=== PATIENT | female | born 1975 | race Caucasian/White ===

== ENCOUNTER 2016-09-10 10:59 | Inpatient (IN) | payer OTHER ==
--- NOTE | 2016-08-28 21:08 | HP ---
ADMISSION HISTORY AND PHYSICAL: DATE OF ADMISSION: 09/10/16 ATTENDING SURGEON: Dr. Jonathon Kirkland. CHIEF COMPLAINT: Ventral incisional hernia. PLAN: Open repair ventral incisional hernia with possible component separation and mesh. HISTORY OF PRESENT ILLNESS: This is a 40-year-old female who is almost 5 years status post gastric bypass with Dr. Kirkland. She underwent laparotomy in 2014, for an internal hernia with cecal volvulus, ultimately requiring right colectomy. She subsequently developed a upper midline incisional hernia that has been increasingly symptomatic. It has also increased in size and is associated with increased symptoms in relation to eating. She has taken to eating much smaller amounts more frequently. Her weight has remained stable. She does not note any change in her bowel movements, though does maintain a regular stool softener. At one point, some back pain was felt to be possibly related though at the present time, the back pain seems to have resolved. She had seen Dr. Kirkland for workup and recommendations made for repair of the hernia. She was initially scheduled in early June, but for various reasons , the surgery has been pushed back. One of those reasons was Dr. Kirkland' preference to use a device that will administer local anesthesia on a steady basis postoperatively and that will apparently be available for her surgery date. She otherwise understands the indications for surgery. The risks, benefits, alternatives, and expected perioperative course including one or more night of hospital stay. She would like to proceed as scheduled with open repair ventral hernia with possible component separation and mesh. PAST MEDICAL HISTORY: Morbid obesity (has lost and maintained approximately 100 pounds since her bypass surgery). She has a past history of type 2 diabetes , which is currently diet controlled. She is treated for depression, restless legs syndrome, mild iron deficiency anemia, and hypothyroidism. She is also followed for ovarian cysts, as well as dysfunctional uterine bleeding ( considering hysterectomy). She also has a past history of migraine headaches, though these are not currently active and GERD. PAST SURGICAL HISTORY: Previous surgeries include gastric bypass with incidental appendectomy in 2011, laparotomy with repair of ventral hernia and right colectomy for cecal volvulus, February 2015. EG tube was placed at that time and subsequently removed. She underwent laparoscopic cholecystectomy, 2010; bilateral carpal tunnel release; tubal ligation; sinus surgery; treatment of precancerous cervical lesions (normal subsequent Pap smears). No anesthesia or surgical complications noted. MEDICATIONS: Current medications: 1. Gabapentin 200 mg t.i.d. (to be titrated up to 300 mg t.i.d. by the time of her surgery). 2. Requip 0.5 mg q.h.s. 3. Synthroid 50 mcg q. day. 4. Zoloft 100 mg q. day. 5. Singulair 10 mg q. day. 6. Omeprazole 40 mg q. day. 7. 325 mg q. day. 8. Vitamin D, dose not specified, once daily. 9. She takes a calcium and magnesium supplement as well as multivitamin and vitamin B12 supplement. 10. She takes a stool softener daily. She is no longer requiring any [place]. ALLERGIES: None known. FAMILY HISTORY: Positive for heart disease, but negative for anesthesia problems, bleeding, or clotting disorders. SOCIAL HISTORY: The patient is . 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 She denies use of tobacco, alcohol, or other substances. REVIEW OF SYSTEMS: General: No recent constitutional symptoms or acute illnesses. Weight has remained stable. Cardiovascular: No history of hypertension, chest pain, or palpitations. Respiratory: She has a remote history of reactive airway and has used a bronchodilator in the past, but infrequently. No recent problems. GI: No problems reported. No lower GI symptoms. : No problems reported. CABLE LACER: As noted above. Most recent pelvic exam and Pap smear done within the past year and a half, as well as breast exam , she has not yet had a baseline screening mammogram. Endocrine: History of type 2 diabetes, currently diet controlled. She is on thyroid supplement for hypothyroidism. Hematological/Oncological: She has had blood transfusions in the past for her most recent surgery, but otherwise no bleeding or clotting disorders noted. PHYSICAL EXAMINATION GENERAL: Well-nourished, well-developed female, in no acute distress VITAL SIGNS: Height 68 inches, weight 155 pounds, BMI 23.6. Temperature 98.2, blood pressure 110/70, pulse 72, respirations 16. HEENT: Pupils equal, round, and reactive. EOMs intact. No conjunctival pallor. Oropharynx, teeth in good repair. No intraoral lesions. NECK: No lymphadenopathy, thyromegaly, or masses. LUNGS: Clear to auscultation. No rales or wheezes. HEART: Regular rate and rhythm. No murmur noted. BREASTS: Not examined. ABDOMEN: Large and wide mid upper abdominal incision, which continues below the umbilicus and which clearly shows herniation in the upper portion of the incision when she sits up. This is soft and nontender at the present time and self-reduces when she is supine. The remainder of the abdominal exam is without palpable masses or organomegaly. No tenderness. RECTAL AND PELVIC EXAMS: Not done. BACK: No spinous process or CVA tenderness. EXTREMITIES: No edema. NEUROLOGICAL: Grossly intact. SKIN: Warm and dry. No suspicious rashes or lesions. IMPRESSION: Ventral incisional hernia. PLAN: Open repair ventral incisional hernia with possible component separation and mesh. EMILIA CHAPA CC: Dr. [place] * [id number]/CPS #: [id number] [facility] HOSPITALFrancia
[~2016-09-10 10:59] MED LIST: Buffered Lidocaine 1% SYR 3ML* 3 ML/SYR SYRINGE INTRADERM ONE; Famotidine IV* 10 MG/ML 2 ML (20 mg) IV ONE
[2016-09-10] MEDS ORDERED: Buffered Lidocaine 1% SYR 3ML* 3 ML/SYR SYRINGE ONE (11:11)
[2016-09-10] MEDS ORDERED: Famotidine IV* 10 MG/ML 2 ML (20 mg) ONE (11:11)
[2016-09-10] MEDS ORDERED: ceFAZolin 2 GM PREMIX (*) 2 GM/50 ML BAG IVPB ONE (11:11)
[2016-09-10] MEDS ORDERED: Lidocaine 2% MPF* 2 ML VIAL ONE (12:06)
[2016-09-10] MEDS ORDERED: DiMENhydriNATE IV* 50 MG/ML VIAL ONE (12:06)
[2016-09-10] MEDS ORDERED: Succinylcholine* 20 MG/ML 10 ML VIAL ONE (12:06)
[2016-09-10] MEDS ORDERED: Dexamethasone IV* 4 MG/ML 1 ML (4 MG) ONE (12:06)
[2016-09-10] MEDS ORDERED: fentaNYL* 50 MCG/ML 2 ML VIAL (100 MCG VIAL) ONE ×3 (12:06→17:54)
[2016-09-10] MEDS ORDERED: Ondansetron INJ* 2 MG/ML VIAL ONE (12:06)
[2016-09-10] MEDS ORDERED: Midazolam* 1 MG/ML 5 ML VIAL (5 MG) ONE (12:06)
[2016-09-10] MEDS ORDERED: Ketorolac INJ* 30 MG/ML 1 ML VIAL ONE (12:06)
[2016-09-10] MEDS ORDERED: Propofol* 10 MG/ML 20 ML BTL IV PUSH ONE ×2 (12:06→17:25)
[2016-09-10] MEDS ORDERED: Rocuronium* 10 MG/ML VIAL ONE ×2 (13:14→15:11)
[2016-09-10] MEDS ORDERED: Bupivacaine 0.5% W/EPI SDV* 30 ML VIAL ONE (13:35)
[2016-09-10] MEDS ORDERED: Lidocaine 1% INJ* 10 MG/ML 30 ML SDV ONE (13:36)
[2016-09-10] MEDS ORDERED: [UNRECOGNIZED DRUG - OTHER] PERIPH SCH (14:00)
[2016-09-10] MEDS ORDERED: ROPIVACAINE 0.2% PERIPH SCH (14:00)
[2016-09-10] MEDS ORDERED: Phenylephrine IV* 40 MCG/ML 10 ML SYRINGE ONE (14:28)
[2016-09-10] MEDS ORDERED: Acetaminophen IV 1GM/100ML * 100 ML IVPB ONE (14:41)
[2016-09-10] MEDS ORDERED: oxyCODONE TAB* 5 MG TAB PO PRN (14:41)
[2016-09-10] MEDS ORDERED: DiMENhydriNATE IV* 50 MG/ML VIAL IV PUSH PRN (14:41)
[2016-09-10] MEDS ORDERED: Ropivacaine* 2 MG/ML 20 ML VIAL (0.2%) ONE (16:19)
[2016-09-10] MEDS ORDERED: HYDROmorphone INJ* 1 MG/ML CARPUJECT SYRINGE ONE ×2 (16:20→18:19)
--- NOTE | 2016-09-10 18:11 | PN ---
Progress Note - Progress Note Note: Brief Operative Note: Preop Dx: Ventral Incisional Hernia Postop Dx: same Procedure: Open repair ventral hernia w/ component separation w/ mesh; placement of transversus abdominus infusion catheters Anesthesia: LINDA (Meghan) Surgeon: Marita Asst: Jeri EBL: 100 ml Fluids: 2400 ml RL UOP 300 ml Drains: 2 JPs; 2 On-Q infusion catheters Findings: dictated
[2016-09-10] MEDS ORDERED: HYDROmorphone INJ* 1 MG/ML CARPUJECT SYRINGE IV SLOW PU PRN (18:16)
[2016-09-10] MEDS ORDERED: Acetaminophen IV 1GM/100ML * 100 ML ONE (18:19)
[2016-09-10] MEDS: HYDROmorphone INJ* 1 MG/ML CARPUJECT SYRINGE IV PRN ×4 (18:20→19:42)
[2016-09-10] MEDS ORDERED: Acetaminophen TAB* 325 MG PO PRN (18:20)
[2016-09-10] MEDS ORDERED: Ondansetron INJ* 2 MG/ML VIAL IV PRN (18:21)
[2016-09-10] MEDS ORDERED: oxyCODONE/Acetamin 5/325 MG* TAB ONE (19:54)
[2016-09-10] MEDS ORDERED: oxyCODONE TAB* 5 MG TAB ONE (20:00)
[2016-09-10] MEDS: HYDROmorphone INJ* 2 MG/ML CARPUJECT SYRINGE IV SLOW PU PRN (21:19)
[2016-09-10] MEDS: Gabapentin CAP(*) 300 MG PO SCH (21:20)
[2016-09-10] MEDS: Ropinirole TAB* 0.5 MG TAB PO SCH (21:21)
[2016-09-11] MEDS: oxyCODONE/Acetamin 5/325 MG* TAB PO PRN ×3 (00:22→20:45)
--- NOTE | 2016-09-11 02:00 | OP ---
DATE OF OPERATION: 09/10/16 - ROOM #335 DATE OF : 75 SURGEON: Jonathon Kirkland MD CRUTCHING CONTRACTOR: Dr. Wilcox. ANESTHESIOLOGIST: Dr. Christianson. ANESTHESIA: General endotracheal. PRE-OP DIAGNOSIS: Ventral incisional hernias. POST-OP DIAGNOSIS: Ventral incisional hernias. OPERATIVE PROCEDURE: 1. Open repair of ventral incisional hernia with component separation and mesh. 2. Placement of transversus abdominis infusion catheters.. ESTIMATED BLOOD LOSS: 50 mL. IV FLUIDS: Crystalloid. SPECIMEN: None. DRAINS: Two 7-mm Leo Jerez drains and subcutaneous tissues. COMPLICATIONS: None. COUNTS: Instrument, needle and sponge counts were correct. DESCRIPTION OF PROCEDURE: The patient was brought to the operating room and placed on the table supine. Sequential compression devices were placed in both lower extremities. General anesthesia was administered. A De [place] Santos catheter was placed. She was positioned and padded appropriately. Her abdomen was prepped and draped in the usual sterile fashion. She received appropriate intravenous antibiotics. Time- out was performed. Midline laparotomy incision was created through the prior scar. The patient had a large epigastric hernia with a small 1 cm bridge of tissue just above the umbilical region and then below that, she had another ventral incisional hernia. The peritoneal cavity was entered. There were a few adhesions. There was some adhesion of small bowel and stomach to the left side of the abdominal wall and in fact, the stomach was densely adherent at the point that the patient had a prior gastrostomy tube. This was taken down using the combination of sharp and blunt dissection and cautery was used to divide the fascia to completely free the gastric wall. The gastric wall was then oversewn with a 2-0 silk in a [id number] fashion, though there was no obvious injury to this. The defect from the gastrostomy tube was closed intra-abdominally with an interrupted [id number] 0 Ti-Cron suture. The adhesiolysis then was completed on the left side and the adhesiolysis was also performed superiorly above the liver and freeing the falciform ligament. The right side of the abdomen was free of adhesions. The largest of the defect was the epigastric defect, which was about 8 cm across and it was approximately 8 to 10 cm in craniocaudal dimension. The entire length of the fascial defect was about 20 inches; however, this extended from the xiphoid. It was decided that we would proceed with components of the operation consisting of a lateral release and then also use an intra-abdominal placement of the Ventrio mesh. The subcutaneous flaps were raised on either side of the wound using cautery and staying directly on top of the fascia. The dissection proceeded out laterally beyond the border of the rectus muscles as confirmed by palpation and inspection on each side. The lateral release was performed about 1 cm lateral to the rectus sheath, the external oblique aponeurosis with the cautery and extending this from the costal margin down to about the level of the anterior superior iliac spine on each side. This provided adequate mobilization of the tissues. Next, the Ventrio mesh size approximately 8 x 10 inches was sutured in place with transfascial stitches of 0 Ti-Cron, placing these sutures around the exterior ring of the mesh. Initially the lateral mid points of the mesh were secured, these were placed about 8 cm out from the edge of the fascia on each side and then additional sutures were placed at 10 o'clock, 2 o'clock, 4 o'clock, 8 o'clock and at 6 o'clock, all with interrupted 0 Ti-Cron sutures. Then before tying these sutures down, the ON-Q catheter was placed in the transversus abdominis plane. This was done first by making skin incisions approximately 6 cm lateral to the midline just above the costal margins on right and left sides. The catheter sheath was positioned over the stylette and advanced through the subcutaneous tissues into the abdominal musculature and it was positioned in the transversus abdominis plane from running cephalocaudally well lateral to the area of the suture placement and the mesh. The stylette was then removed and the catheter was threaded through the peel-away sheath and the peel-away sheath was then removed and the catheters were ensured to be in proper position both on the left side and on the right side. Next, the mesh was positioned and the sutures were tied down and then a series of spiral tacks were placed using CapSure tacking device from within the pocket of the Ventrio mesh tacking the mesh at 1 cm interval circumferentially, though tacks were not placed at the most superior aspect due to the fact that this was beneath the costal margin and well above the liver. An additional interval of tacks was then placed with the CapSure and then the midline wound was closed with #1 Surgipro running with the mesh being drawn up with the suture in the midline. After closing the abdomen, the subcutaneous tissues were irrigated and hemostasis was assured. The 7-mm drains were placed through separate stab wound incisions in both right and left lower abdomen and positioned in the subcutaneous space and sutured to the skin with 3-0 Surgipro. The midline was then closed with 3-0 Polysorb interrupted sutures to approximate the subcutaneous tissues and tacking this down to the midline fascia. The umbilical stalk which had also been mobilized was also tacked down to the midline fascia and the skin was closed with christofer. The YASMANY drains were placed to suction bulbs. The ON-Q catheters were primed with 5 cc of 0.2% ropivacaine in each catheter and then connected to the dual pump. The catheters were dressed with DermaFlex and Steri-Strips and Tegaderm. The midline wound was dressed with an island dressing. The YASMANY drains were dressed with 4x4s and tape. Abdominal binder was also applied. The patient tolerated the procedure well. She was extubated uneventfully. She was transferred to the recovery room in stable condition. CC: Priyanka Kowalski MD* [id number]/[facility] #: [id number] ARIANA
[2016-09-11] MEDS: HYDROmorphone INJ* 2 MG/ML CARPUJECT SYRINGE IV SLOW PU PRN ×6 (03:59→23:43)
[2016-09-11] MEDS: Levothyroxine TAB* 50 MCG TAB PO SCH (05:43)
[2016-09-11] MEDS: Gabapentin CAP(*) 300 MG PO SCH ×3 (08:45→20:11)
[2016-09-11] MEDS: Prenatal Vitamin TAB PO SCH (08:45)
[2016-09-11] MEDS: Sertraline* 50 MG TAB PO SCH (08:46)
[2016-09-11] MEDS: Omeprazole CAP* 20 MG PO SCH (08:46)
--- NOTE | 2016-09-11 10:22 | PN ---
Progress Note - Progress Note SOAP: Subjective:awake,alert,needed IV pain med because pain balls not working;ate reg diet,no nausea;voiding after escobar out;up walking;using IS [] Objective:lungs:clear bilat;heart RRR;abd:+bs,midline dsg intact,not removed, old bloody drainage;YASMANY x2 intact,bloody drainage,milked and patent;soft, nondistended;ext:nontender,no edema [] Assessment:POD#1 s/p ventral hernia repair with component separation,doing well [] Plan:pain balls flushed by PACU nurse;possible discharge home later if good pain control []
[2016-09-11] MEDS ORDERED: ceFAZolin 2 GM PREMIX (*) 2 GM/50 ML BAG IVPB ONE ×2 (11:09→16:00)
[2016-09-11] MEDS: Ondansetron INJ* 2 MG/ML VIAL IV PRN ×3 (11:32→20:12)
[2016-09-11 13:55] LABS: Hematocrit 33 % (35-47); Hemoglobin 10.9 g/dl (12.0-16.0)
[2016-09-11] MEDS ORDERED: HYDROmorphone INJ* 2 MG/ML CARPUJECT SYRINGE IV ONE (14:00)
[2016-09-11] MEDS ORDERED: fentaNYL* 50 MCG/ML 5 ML VIAL (250 MCG VIAL) ONE (17:21)
[2016-09-11] MEDS ORDERED: Midazolam* 1 MG/ML 5 ML VIAL (5 MG) ONE (17:21)
[2016-09-11] MEDS ORDERED: Montelukast Sodium TAB* 10 MG PO SCH (18:00)
[2016-09-11] MEDS ORDERED: Ondansetron INJ* 2 MG/ML VIAL IV PRN (18:03)
[2016-09-11] MEDS ORDERED: HYDROmorphone INJ* 1 MG/ML CARPUJECT SYRINGE IV PRN (18:03)
[2016-09-11] MEDS ORDERED: DiMENhydriNATE IV* 50 MG/ML VIAL IV PUSH PRN (18:03)
[2016-09-11] MEDS ORDERED: fentaNYL* 50 MCG/ML 2 ML VIAL (100 MCG VIAL) IV PRN (18:03)
--- NOTE | 2016-09-11 19:04 | SURGPN ---
Brief Operative Note - Surgery Procedures: PREOP DX/POSTOPDX: ABDOMINAL WALL HEMATOMA PROC: EXPLORATION OF ABDOMINAL WOUND, EVACUATION OF ABDOMINAL WALL HEMATOMA AND REPLACEMENT OF YASMANY DRAINS SURG: MECENAS ASSIST: Suzanne LYNNE NP ANES: LINDA; VERONIQUE EBL: 300 ML (HEMATOMA) IVF: LR SPEC: NONE DRAIN: YASMANY 7MM X 2 COMPL: NONE COND: STABLE TO RR. FINDINGS: HEMATOMA IN SUBCUTANEOUS SPACE RIGHT ABDOMEN.
[2016-09-11] MEDS: Ropinirole TAB* 0.5 MG TAB PO SCH (20:12)
[2016-09-11] MEDS: ceFAZolin 1 GM in Dextrose (*) 1 GM/50 ML BAG IVPB SCH (20:30)
[2016-09-12] MEDS: oxyCODONE/Acetamin 5/325 MG* TAB PO PRN ×3 (00:56→09:29)
--- NOTE | 2016-09-12 01:39 | OP ---
DATE OF OPERATION: 09/11/16 - ROOM #335 DATE OF : 75 SURGEON: Jonathon Kirkland MD. SCREEN PRINTER: Jo Gómez NP. ANESTHESIOLOGIST: Randy Brown MD. ANESTHESIA: General endotracheal. PRE-OP DIAGNOSIS: Abdominal wall hematoma. POST-OP DIAGNOSIS: Abdominal wall hematoma. OPERATIVE PROCEDURE: Wound exploration, evacuation of abdominal wall hematoma, replacement of Leo-Jerez drains. ESTIMATED BLOOD LOSS: 300 mL (hematoma). IV FLUIDS: Crystalloids. SPECIMEN: None. DRAINS: The 7 mm Leo-Jerez x2. COMPLICATIONS: None. COUNTS: Instrument, needle, and sponge counts correct. DESCRIPTION OF PROCEDURE: The patient was brought to the operating room, placed on the table supine. The patient had sequential compression devices placed on both lower extremities. She was administered general anesthesia. Abdomen was prepped and draped in the usual sterile fashion, prepping the drains and ON-Q catheters into the site with Betadine. After draping, time-out was performed. The patient had received dose of IV antibiotics prior to this. The indwelling midline christofer were removed and subcutaneous sutures were cut. Dark clotted blood was noted in the left subcutaneous space of the abdomen. The drain was removed and the clot was evacuated. Irrigation was performed and then careful inspection for any active bleeding. Aside from some small subcutaneous bleeders, there was no evidence of any active bleeding. The left side of the abdomen was explored as well but this was clear of any clot. Both YASMANY drains were removed and replaced with new Leo-Jerez drains that were sutured to the skin going through the same tracks and 3-0 Surgipro were used to suture the drains to the skin. The midline wound was then closed with interrupted 3-0 Polysorb to approximate subcutaneous and suture deep dermis and the christofer were used to approximate the skin. The dressing was applied to the midline wound and at the drain sites. The ON-Q catheters were inspected and noted to be intact and in proper position. The Tegaderm dressings and Steri- Strips that were covering these were removed and replaced. The patient tolerated the procedure well, she was extubated and transferred to the recovery room in stable condition. CC: Priyanka Kowalski MD * [id number]/[facility] #: [id number] [facility] CENTERFrancia
[2016-09-12] MEDS: ceFAZolin 1 GM in Dextrose (*) 1 GM/50 ML BAG IVPB SCH ×2 (01:54→08:06)
[2016-09-12] MEDS: Ondansetron INJ* 2 MG/ML VIAL IV PRN (03:46)
[2016-09-12] MEDS: HYDROmorphone INJ* 2 MG/ML CARPUJECT SYRINGE IV SLOW PU PRN (03:46)
[2016-09-12] MEDS: Levothyroxine TAB* 50 MCG TAB PO SCH (05:46)
[2016-09-12 08:00] VITALS: BP 101/43
[2016-09-12] MEDS: Sertraline* 50 MG TAB PO SCH (08:09)
[2016-09-12] MEDS: Gabapentin CAP(*) 300 MG PO SCH (08:09)
[2016-09-12] MEDS: Prenatal Vitamin TAB PO SCH (08:10)
[2016-09-12] MEDS: Omeprazole CAP* 20 MG PO SCH (08:10)
[2016-09-12] MEDS ORDERED: ROPIVACAINE 0.2% PERIPH SCH (09:00)
--- NOTE | 2016-09-12 09:45 | PN ---
Progress Note - Progress Note SOAP: DISCHARGE NOTE Subjective:awake,alert;wants to go home;good pain control with Q ball and Percocet;good appetite,passing flatus,no dysuria;up walking [] Objective:lungs clear bilat;heart RRR;abd:+bs,nondistended,midline dressing intact,no drainage;JPx2 patent,bloody drainage;ext:nontender,no edema;Q pain ball catheters intact [] Assessment:POD#2 s/p open ventral hernia repair with mesh and component separation POD#1 s/p evacuation of hematoma right abdomen [] Plan:Doing well,discharge home today per Dr Kirkland;instructions reviewed;RX sent;office visit 09/16/16 []
--- NOTE | 2016-09-12 10:56 | DS ---
DATE OF ADMISSION: 09/10/2016. DATE OF DISCHARGE: 09/12/2016. ATTENDING SURGEON: Dr. Jonathon Kirkland. HOSPITAL COURSE: Please refer to admission history and physical for admission details. The patient was taken to the operating room on Saturday, September 10, 2016 and underwent open ventral hernia repair with component separation and mesh. On postoperative day one, there was swelling in the right abdominal wall consistent with hematoma and she returned to the operating room for wound exploration, evacuation of the abdominal wall hematoma, and replacement of Leo-Jerez drains. She has had a subsequent uneventful postoperative course and is now experiencing good pain control with the ON-Q pain ball, as well as Percocet. She has a good appetite on a regular diet, she is up independently ambulating. She is passing flatus and voiding large amounts. She has been using her Inspiron. She was seen earlier today by myself and Dr. Kirkland and has met criteria for discharge. PHYSICAL EXAMINATION: General: Well-appearing, in no acute distress. Vital Signs: Temperature 98.1, pulse 84, respirations 16, O2 saturation on room air 94 percent, blood pressure 100/43. Lungs: Breath sounds bilaterally clear and equal. Heart: Regular rate and rhythm. No murmurs or rubs appreciated. Abdomen: Active bowel sounds, nondistended. Midline incision dressing intact without any drainage. Leo-Jerez drains times two are intact and patent with bloody drainage as expected and there are two catheters connected to the ON-Q pain ball, which the patient will go home with for pain management. Extremities : Nontender without edema. IMPRESSION: Status post open repair of ventral incisional hernia with component separation and mesh and subsequent wound exploration with the evacuation of abdominal wall hematoma and replacement of Leo-Jerez drains. PLAN: Discharge home today. All of the instructions were reviewed with the patient and all of her questions were answered. A prescription for Percocet 5/ 325 was electronically transmitted to [facility] in [place]. A new ON-Q pain ball was connected to her catheters. An appointment for a follow-up visit in our office with Dr. Kirkland was scheduled for Friday, September 16, 2016. ASIF GUILLEN, BOOK SALESMAN [id number]/[facility] #: [id number] [facility] NETWORKFrancia
== END 2016-09-12 10:20 | disposition home or self-care (01) | DRG 227 ==
LOC: OR 10:59 → SSU 12:15 → OBSVTOIN 09-11 12:15 → UNDODISIN 09-12 10:27
PROVIDERS: ADMIT Surgery; ATTEND Surgery
PROC: 0WUF0JZ Supplement Abdominal Wall with Synthetic Substitute, Open Approach (ICD-10-PCS; 2016-09-10)
PROC: 3E0M05Z Introduction of Adhesion Barrier into Peritoneal Cavity, Open Approach (ICD-10-PCS; 2016-09-10)
PROC: 0W3F0ZZ Control Bleeding in Abdominal Wall, Open Approach (ICD-10-PCS; principal; 2016-09-11 17:00)
DX: K43.2 Incisional hernia without obstruction or gangrene (principal); K91.870 Postprocedural hematoma of a digestive system organ or structure following a digestive system procedure; E66.01 Morbid (severe) obesity due to excess calories; E11.9 Type 2 diabetes mellitus without complications; F32.9 Major depressive disorder, single episode, unspecified; D50.9 Iron deficiency anemia, unspecified; E03.9 Hypothyroidism, unspecified; Z98.84 Bariatric surgery status; Z68.23 Body mass index [BMI] 23.0-23.9, adult; G25.81 Restless legs syndrome; K21.9 Gastro-esophageal reflux disease without esophagitis; G43.909 Migraine, unspecified, not intractable, without status migrainosus; N93.8 Other specified abnormal uterine and vaginal bleeding; Z90.49 Acquired absence of other specified parts of digestive tract; Z82.49 Family history of ischemic heart disease and other diseases of the circulatory system; Y83.8 Other surgical procedures as the cause of abnormal reaction of the patient, or of later complication, without mention of misadventure at the time of the procedure; E28.2 Polycystic ovarian syndrome
CPT/HCPCS: 36415; 85014; 85018; 86850; 86900; 86901; A9270-GY; C1781; G0378; J0330; J0690; J1100; J1170; J1240; J1885; J2250; J2405; J2704; J2795; J3010